=== PATIENT | female | born 1945 | race Caucasian/White ===

== ENCOUNTER 2019-08-14 00:02 | Inpatient (IN) | payer MEDICARE, BC, SELFPAY ==
[2019-08-14] VITALS (23 sets, daily range): BP systolic 146–226; BP diastolic 78–115; PULSE 73–91; RESP 11–20; TEMP 36.6–37.2; O2SAT 93–98; BMI 44.1; BMI 46.5
--- NOTE | 2019-08-14 01:23 | EKG12_ITS ---
Test Reason : HYPERTENSON Blood Pressure : / mmHG Vent. Rate : 080 BPM Atrial Rate : 080 BPM P-R Int : 156 ms QRS Dur : 082 ms QT Int : 394 ms P-R-T Axes : 055 044 059 degrees QTc Int : 454 ms Sinus rhythm with occasional Premature ventricular complexes Otherwise normal ECG Confirmed by COLE HICKMAN ([id number]), website/blog editor KIYA SMITH ([id number]) on 08/19/2019 12:13:27 PM Referred By: JAGDISH Confirmed By:COLE HICKMAN
--- NOTE | 2019-08-14 01:23 | CT_ITS ---
STUDY: CT BRAIN WITHOUT CONTRAST REASON FOR EXAM: Female, 73 years old. Headache RADIATION DOSAGE (If Supplied By Facility): CTDIvol = ( 44.99 ) mGy, DLP = ( 796.11 ) mGycm TECHNIQUE: Transaxial CT imaging of the brain was performed without administration of intravenous contrast material. Individualized dose optimization techniques were used for this CT. COMPARISON: No relevant priors. FINDINGS: Normal soft tissue structures. Normal calvarium. There is mild cerebral atrophy with widening of the extra-axial spaces and ventricular dilatation. There is mild to moderate bilateral periventricular and subcortical white matter hypoattenuation which is symmetric in distribution. Well-defined hypoattenuated lesions within the left basal ganglia. Normal thalami. Normal brainstem. Normal cerebellum. There is no intracranial hemorrhage. There are no findings of an acute ischemic infarction. Normal visualized paranasal sinuses. CT/Brain/Head without Contrast IMPRESSION: 1. No acute intracranial abnormality. 2. Mild to moderate bilateral periventricular and subcortical white matter chronic small vessel disease with age appropriate cerebral atrophy. Electronically Signed: Jose Duval MD at 4:20 EDT Tel , Service support ,
--- NOTE | 2019-08-14 01:24 | ED.DCSUM_ITS ---
History of Present Illness Chief Complaint: Hypertension Narrative: Patient is a 73-year-old female who presents with a headache. She has had uncontrolled blood pressure for about 3 weeks. She complains of a severe occipital headache for the last several days. She did contact her primary care physician today who took her off of doxazosin and added on clonidine. She took the first dose tonight. However when she checked her blood pressure at home it was 220 systolic and she was concerned she may have a stroke so presented here. No chest pain no shortness of breath no weakness lightheadedness dizziness speech difficulty. Past Medical History - Allergies and Home Meds Allergies/Adverse Reactions: Allergies acetaminophen [From Percocet] Allergy (Verified 08/14/19 00:07) Unknown Iodinated Contrast Media [DYEE] Allergy (Verified 08/14/19 00:07) Unknown oxycodone [From Percocet] Allergy (Verified 08/14/19 00:07) Unknown Penicillins [PCN] Allergy (Verified 08/14/19 00:07) Swollen lymph glands Primary Care Physician: [facility] Doctor,Out of [NON-STAFF] - Past Medical History: - - Hypertension, diabetes, hyperlipidemia Smoking Status: Never smoker Review of Systems All systems negative except as indicated General: Denies: Fever Cardiovascular: Denies: Chest pain Respiratory: Denies: Dyspnea Gastrointestinal: Denies: Vomiting Neurological: Reports: Headache Physical Exam Vital Signs/Narrative: Vital Signs Temp Pulse Resp BP Pulse Ox 08/14/19 00:03 98.2 F 91 18 159/115 H 95 Inital Vital Signs reviewed: Yes General: Well nourished, Well developed Head: Normocephalic Eyes: EOMI ENT: Moist mucous membranes Neck: Supple Cardiovascular: Regular rate, Regular rhythm Respiratory: No distress Abdomen: Soft Skin: Normal color Neurological: Alert, Oriented x3, Cranial nerves II-XII grossly intact, Normal Strength, Normal Sensation Psychological: Normal affect Diagnostic/Tx/Re-eval Impressions Brain CT 08/14/19 01:23 IMPRESSION: 1. No acute intracranial abnormality. 2. Mild to moderate bilateral periventricular and subcortical white matter chronic small vessel disease with age appropriate cerebral atrophy. Electronically Signed: Jose Duval MD at 4:20 EDT Tel , Service support , Chest X-Ray 08/14/19 03:33 IMPRESSION: No acute cardiopulmonary disease Electronically Signed: Jose Duval MD at 4:27 EDT Tel , Service support , 08/14/19 01:23 Brain/Head without Contrast [CT] Stat 08/14/19 03:33 CXR [Chest 1 View (Portable)] [RAD] Stat Laboratory Results 08/14/19 08/14/19 01:40 01:40 WBC 7.4 RBC 4.70 Hgb 14.1 Hct 41.8 MCV 88.9 MCH 30.0 MCHC 33.7 RDW Std Deviation 40.2 RDW Coeff of Cathie 12.4 Plt Count 244 MPV 10.6 Immature Gran % (Auto) 0.400 Neut % (Auto) 73.6 H Lymph % (Auto) 17.4 L [place] % (Auto) 5.6 Eos % (Auto) 2.6 Baso % (Auto) 0.4 Absolute Neuts (auto) 5.4 Absolute Lymphs (auto) 1.28 Nucleated RBC % 0 Sodium 134 L Potassium 4.8 Chloride 98 Carbon Dioxide 29.0 Anion Gap 7 BUN 15 Creatinine 0.82 Estim Creat Clear Calc 54.98 Est GFR (MDRD) Af Amer 87 Est GFR (MDRD) Non-Af 72 BUN/Creatinine Ratio 18.2 Glucose 168 H Calcium 9.1 Troponin I < 0.015 - Medical Decision Making Laboratory studies and imaging as above. EKG shows sinus rhythm with a PVC at a rate of 80, no acute ischemic changes. Patient was initially given Reglan for headache. She was given hydralazine and IV labetalol with little change in blood pressure. Her headache is symptomatically improved. While she was here she also began to mention that she has had a dyspnea on exertion. Her chest x- ray on my review showed no acute process, radiology read is pending. She remains significantly hypertensive and has been ordered additional IV labetalol. I do believe her symptoms may be related to hypertensive urgency. Therefore I did feel she should be admitted for blood pressure control further evaluation and management. Patient will be discussed with the hospitalist and admitted. ED Disposition - Plan for ED Patient: Disposition: Acute Care Hospital [facility] Diagnosis: Hypertensive urgency Referrals: [facility] Doctor,Out of [NON-STAFF] -
--- NOTE | 2019-08-14 01:26 | ED.RN ---
NO OLD EKGS IN MUSE
[2019-08-14 01:44] LABS: Absolute Lymphocyte Count 1.28 X10^3/uL (0.83-4.51); Absolute Neutrophil Count 5.4 X10^3/uL (2.0-7.7); Basophil# 0.03 X10^3/uL; Basophil% 0.4 % (0-1); Eosinophil# 0.19 X10^3/uL; Eosinophils% 2.6 % (0-5); Hematocrit 41.8 % (37-47); Hemoglobin 14.1 g/dL (12.0-15.0); Lymphocyte # 1.28 X10^3/ul (4.0); Lymphocyte % 17.4 % (19-41); Mean Corp Hgb Conc 33.7 g/dL (32-36); Mean Corpuscular Volume 88.9 fL (81-99); Mean Platelet Vol. 10.6 fl (6.2-12.0); Monocyte# 0.41 X10^3/uL; Monocyte% 5.6 % (0-10); NRBC Flagged by Analyzer 0 % (0-5); Neutrophil # 5.43 X10^3/uL (2.7-7.7); Neutrophil % 73.6 % (47-70); Platelet Count 244 K/mm3 (150-450); RBC Distribution Width CV 12.4 % (11.6-14.6); RBC Distribution Width SD 40.2 fl (35.1-43.9); White Blood Count 7.4 K/mm3 (4.4-11.0)
[2019-08-14] MEDS: Metoclopramide 10 MG/2 ML Vial IV (01:50)
[2019-08-14 02:01] LABS: Anion Gap 7 (5-15); BUN 15 mg/dL (7-18); BUN/Creat Ratio 18.2 RATIO (10-20); Calcium,Total 9.1 mg/dL (8.5-10.1); Chloride 98 mmol/L (98-107); Creatinine, Serum 0.82 mg/dL (0.55-1.02); EST Glomerular Filtration Rate 72 mL/min (>60); Est Glom Filt Rate - Afr Amer 87 mL/min (>60); Estimated Creatinine Clearance 54.98 ml/min; Glucose 168 mg/dL (74-106); Potassium 4.8 mmol/L (3.5-5.1); Sodium Level 134 mmol/L (136-145)
[2019-08-14] MEDS: hydrALAZINE 20 MG/ML Vial 10 MG IV ×3 (02:33→23:07)
--- NOTE | 2019-08-14 03:32 | ED.RN ---
CALLED CT FOR RESULTS, SHE WILL CALL RADIOLOGIST.
--- NOTE | 2019-08-14 03:33 | RAD_ITS ---
STUDY: X-RAY CHEST REASON FOR EXAM: Female, 73 years old. Shortness of breath TECHNIQUE: Single AP portable view of the chest. COMPARISON: None. FINDINGS: The lungs are clear and expanded. There is no demonstrated pleural abnormality. Borderline cardiomegaly. Normal mediastinum and mirza. Normal visualized pulmonary arteries. There is atherosclerotic calcification of the aortic arch . Normal visualized thoracic spine. Normal visualized ribs, clavicles, and shoulders. There is no demonstrated abnormality of the visualized soft tissue structures of the upper abdomen. RAD/Chest 1 View (Portable) IMPRESSION: No acute cardiopulmonary disease Electronically Signed: Jose Duval MD at 4:27 EDT Tel , Service support ,
--- NOTE | 2019-08-14 04:14 | ED.RN ---
Called radiology again for CT results as it has been over 2 hrs. weatherseal technician has called ultrasound technol support. Tech support has tried to email radiologist with no response. weatherseal technician wants tech support to reassign CT for results.
--- NOTE | 2019-08-14 04:33 | PCM.HP.STD ---
Problem List (1) Hypertensive urgency Status: Acute History of Present Illness Date of Admission: 08/14/19 Chief Complaint: High Blood Pressure The patient is a 73 year old F with a significant history of HTN and diabetes who presented to the ED because of elevated blood pressure. Her blood pressure has being uncontrolled and her PCP began to make some alterations to her blood pressure regimen around the first week of July. On the day of presentation systolic blood pressure was around 220. Patient called her PCP and was prescribed clonidine; and was instructed that if her blood pressure remain uncontrolled she should come to the emergency department. Her cadura was recently stopped. Also patients has had a severe headache for the last 3-4 weeks. At the ED she complained of SOB while lying in the ED Bed At the ED patient had severely elevated blood pressure and she was given a total of 60 mg IV labetalol and 10 mg IV Apresoline. Also she was given Reglan IV for headache. Past Medical History Medical History: Medical History (Last Updated 08/14/19 @ 06:40 by Skip Hickman MD) HTN (hypertension) I10 Allergies acetaminophen [From Percocet] Allergy (Verified 08/14/19 00:07) Unknown Iodinated Contrast Media [DYEE] Allergy (Verified 08/14/19 00:07) Unknown oxycodone [From Percocet] Allergy (Verified 08/14/19 00:07) Unknown Penicillins [PCN] Allergy (Verified 08/14/19 00:07) Swollen lymph glands Home Medications: Ambulatory Orders Medication Instructions Recorded Amlodipine [Norvasc] 10 mg PO DAILY 08/14/19 Clonidine HCl [Catapres] 0.1 mg PO BID 08/14/19 Labetalol [Trandate] 400 mg PO BID 08/14/19 Mirabegron [Myrbetriq] 50 mg PO DAILY 08/14/19 Omeprazole [Prilosec] 20 mg PO DAILY 08/14/19 Potassium Chloride 20 meq PO BID 08/14/19 Pravastatin [Pravachol] 20 mg PO QHS 08/14/19 Sitagliptin Phosphate [Januvia] 100 mg PO DAILY 08/14/19 glipiZIDE [Glucotrol] 10 mg PO BIDAC 08/14/19 Surgical History: cholecystectomy, total knee arthroplasty - Bilateral, - - Rotator cuff surgery; femur surgery Lives: Spouse/ Significant Other Smoking Status: Never smoker Alcohol: None - *Family History Maternal History Items: Diabetes, Hypertension, - - Her mother from cerebral hemorrhage Paternal History Items: Diabetes, Heart Disease, - - Her father from cerebral hemorrhage Review of Systems Constitutional: Denies: Chills, Fever, Weight Change HEENT: Reports: Head Aches. Denies: Sinus Congestion, Sinus Drainage Cardiovascular: Denies: Chest Pain, Palpitations Respiratory: Reports: Shortness of breath at rest. Denies: Cough, Sputum production Gastrointestinal: Denies: Abdominal Pain, Nausea, Vomiting Genitourinary: Denies: Dysuria Musculoskeletal: Denies: Joint Pain, Joint Tenderness Skin: Denies: Rash, Wounds Neurological: Denies: Numbness, Tingling, Focal weakness Psychiatric: Denies: Anxiety, Depression, Homicidal Ideations, Suicidal Ideations Hematologic/ Lymphatic: Denies: Easy Bruising, Easy Bleeding VTE Information - Inpt Only VTE Present on Admission: No VTE Mechan Device Prophylaxis: None VTE Pharm Prophylaxis ordered?: Yes Patient Problems: Active and Suspected Problems (Last Updated 08/14/19 @ 06:40 by Skip Hickman MD) Hypertensive urgency (Acute) - Physical Exam General: Alert, Oriented x3, Cooperative HEENT: Atraumatic, PERRLA, EOMI, Normocephalic Neck: Supple, No JVD, Negative Carotid Bruits Lungs: Clear to auscultation, Normal air movement Cardiovascular: Regular rate, No murmurs Abdomen: Bowel Sounds Present, Soft, Non Tender Extremities: No edema, Capillary Refill Less than 3 Seconds Skin: No rashes, No breakdown Musculoskeletal: No Tenderness to Palpation of Joints or Extremities Neurological: Cranial nerves II-XII grossly intact Psych/Mental Status: Normal Affect, Appropriate Vital Signs Temp Pulse Resp BP Pulse Ox 98.0 F 74 11 L 189/100 H 94 08/14/19 04:28 08/14/19 04:32 08/14/19 04:32 08/14/19 04:32 08/14/19 04:32 Oxygen Delivery Method Room Air Weight: 120.202 kg Body Mass Index (BMI) 44.1 Laboratory Tests Past 24 Hrs 08/14/19 08/14/19 01:40 01:40 WBC 7.4 RBC 4.70 Hgb 14.1 Hct 41.8 MCV 88.9 MCH 30.0 MCHC 33.7 RDW Std Deviation 40.2 RDW Coeff of Cathie 12.4 Plt Count 244 MPV 10.6 Immature Gran % (Auto) 0.400 Neut % (Auto) 73.6 H Lymph % (Auto) 17.4 L [place] % (Auto) 5.6 Eos % (Auto) 2.6 Baso % (Auto) 0.4 Absolute Neuts (auto) 5.4 Absolute Lymphs (auto) 1.28 Nucleated RBC % 0 Sodium 134 L Potassium 4.8 Chloride 98 Carbon Dioxide 29.0 Anion Gap 7 BUN 15 Creatinine 0.82 Estim Creat Clear Calc 54.98 Est GFR (MDRD) Af Amer 87 Est GFR (MDRD) Non-Af 72 BUN/Creatinine Ratio 18.2 Glucose 168 H Calcium 9.1 Troponin I < 0.015 Assessment/Plan All Active Problems (Last Updated 08/14/19 @ 06:40 by Skip Hickman MD) Hypertensive urgency (Acute) The patient is a 73 year old F with a significant history of HTN and diabetes who presented to the ED because of elevated blood pressure and headache and required high dose IV blood pressure medication at the emergency department consistent with hypertensive urgency. Hypertensive urgency Restart home blood pressure medication of amlodipine and labetalol. Hold clonidine since it can cause rebound hypertension. Goal is gradual reduction of blood pressure. Patient is on home potassium chloride 20 mEq p.o. twice daily that she takes for hypokalemia. Because of a history of hypokalemia and HTN we will get renin aldosterone ratio. Will add schedule Hydralazine po and prn Hydralazine IV Unsure while patient is not on any diuretic as a third bp meds. Assume because of history of hypokalemia. Order to obtain records from her PCP''s office, Dr. Boy Townsend, [place], [place]. Headache Probably related to HTN Received reglan at ED. Allergic to tylenol. Toradol prn. BP treatment as above Diabetes On presentation her blood sugar was within goal. Januvia and Glucotrol continued. FSBS ordered. Hypokalemia Patient takes potassium 20 mEq twice daily home. On presentation her potassium was 4.8. De-escalate to potassium chloride 20 mEq once daily. Trend BMP GERD Prilosec continued Overactive bladder Mirabegron continued DVT Prophylaxis Subcutaneous Lovenox Code Visit OBSV E&M: 41210 Initial observation care L3
[2019-08-14] MEDS: Labetalol 100 MG/20 ML Vial 40 MG IV (04:46)
[2019-08-14] MEDS: Labetalol 200 MG Tablet 400 MG PO ×2 (06:29→20:46)
[2019-08-14] MEDS: Ketorolac 10 MG Tablet PO (06:30)
[2019-08-14] MEDS: hydrALAZINE 50 MG Tablet PO ×3 (06:30→20:47)
[2019-08-14 07:10] LABS: Bedside Glucose 174 mg/dL (70-110)
[2019-08-14] MEDS: glipiZIDE 10 MG Tablet PO ×2 (08:41→17:15)
[2019-08-14] MEDS: LINAGLIPTIN 5 MG TABLET PO (08:41)
[2019-08-14] MEDS: Pantoprazole Sodium 20 MG Tablet PO (08:41)
[2019-08-14] MEDS: cloNIDine HCl 0.1 MG Tablet PO (08:41)
[2019-08-14] MEDS: amLODIPine 10 MG Tablet PO (08:42)
[2019-08-14] MEDS: Enoxaparin 40 MG/0.4 ML Syringe SC (08:42)
[2019-08-14] MEDS: Mirabegron 50 MG TAB.ER.24H PO (08:44)
--- NOTE | 2019-08-14 08:53 | ECHOD_ITS ---
Reason For Study: HTN Procedure This was a 2D Doppler, Color Flow transthoracic echocardiogram. Exam performed portable in patient room. Left Ventricle Mild concentric left ventricular hypertrophy. The estimated ejection fraction is 75 %. Stage 1 diastolic dysfunction. No regional wall motion abnormalities noted. Right Ventricle Mildly dilated right ventricle. Normal systolic function. Atria Normal left atrium. Normal right atrium. Normal atrial septum. Mitral Valve Mild diffuse mitral valve thickening. Mild mitral annular calcification extending into the posterior leaflet. Tricuspid Valve Normal tricuspid valve. Trivial tricuspid valve insufficiency. Right ventricular systolic pressure estimated to be 23 mmHg. Aortic Valve Trisinus/trileaflet aortic valve. Mild focal aortic valve thickening. There is no aortic stenosis. Pulmonic Valve The pulmonic valve is not well visualized. Great Vessels Normal aortic root. Normal arch. Normal inferior vena cava. Inferior vena cava collapse with sniff. Pericardium/Pleural No pericardial effusion. MMode/2D Measurements & Calculations LVIDd: 4.3 cm IVSd: 1.1 cm LVOT diam: 2.0 cm LVIDs: 3.0 cm LVPWd: 1.3 cm LVOT area: 3.1 cm2 RVDd: 4.2 cm FS: 32.0 % Ao root diam: 3.5 cm LAV(MOD-bp): 42.1 ml LA A4 area: 16.1 cm2 LAV(MOD-bp) Indexed: 18.9 ml/m2 LAV(MOD-sp2): 38.9 ml LAV(MOD-sp4): 43.4 ml LA dimension(2D): 4.9 cm RA A4 area: 14.1 cm2 Time Measurements MV dec time: 0.39 sec Doppler Measurements & Calculations MV E max shaheed: 73.0 cm/sec Lat Peak E' Shaheed: 3.7 cm/sec Med Peak E' Shaheed: 5.4 cm/sec MV A max shaheed: 104.9 cm/sec E/E' lat: 19.5 E/E' med: 13.6 MV E/A: 0.70 Ao V2 max: 183.3 cm/sec LV V1 max: 140.8 cm/sec SV(LVOT): 101.5 ml Ao max P.4 mmHg LV V1 max P.9 mmHg Ao V2 mean: 127.7 cm/sec LV V1 mean P.6 mmHg Ao mean P.2 mmHg LV V1 mean: 101.9 cm/sec Ao V2 VTI: 37.4 cm LV V1 VTI: 33.1 cm JOSEPH(I,D): 2.7 cm2 JOSEPH(V,D): 2.4 cm2 PA V2 max: 123.1 cm/sec TR max shaheed: 209.7 cm/sec TR max P.6 mmHg Interpretation Summary Mild concentric left ventricular hypertrophy. The estimated ejection fraction is 75 %. Stage 1 diastolic dysfunction. Mildly dilated right ventricle. Trivial tricuspid valve insufficiency. Right ventricular systolic pressure estimated to be 23 mmHg. There is no comparison study available. Ordering Physician: Negar Dixon Referring Physician: MAITE TURNER Performed By: America Jett, LACY, RVT
[2019-08-14 11:50] LABS: Bedside Glucose 185 mg/dL (70-110)
[2019-08-14] MEDS: Acetaminophen 325 MG Tablet 650 MG PO ×2 (14:11→20:51)
--- NOTE | 2019-08-14 14:57 | PCM.PROGNOTE ---
<Negar Dixon - Last Filed: 08/14/19 15:09> Patient Problems: Active and Suspected Problems (Last Updated 08/14/19 @ 06:40 by Skip Hickman MD) Hypertensive urgency (Acute) Subjective: Patient seen and examined. Headache improved. Denies chest pain, shortness of breath. - Physical Exam General: Alert, Oriented x3, Cooperative HEENT: Atraumatic, PERRLA, EOMI, Normocephalic Neck: Supple, No JVD, Negative Carotid Bruits Lungs: Clear to auscultation, Normal air movement Cardiovascular: Regular rate, Regular Rhythm, Normal S1, Normal S2, No murmurs Abdomen: Bowel Sounds Present, Soft, Non Tender, Non-Distended, Obese Extremities: No clubbing, No cyanosis, No edema, Capillary Refill Less than 3 Seconds Skin: No rashes, No breakdown Musculoskeletal: No Tenderness to Palpation of Joints or Extremities Neurological: Cranial nerves II-XII grossly intact, Neuro grossly intact Psych/Mental Status: Normal Affect, Appropriate Vital Signs Temp Pulse Resp BP Pulse Ox 98.5 F 74 16 169/82 H 94 08/14/19 14:00 08/14/19 14:12 08/14/19 14:00 08/14/19 14:12 08/14/19 14:00 Oxygen Delivery Method Room Air Weight: 271 lb 2.697 oz Body Mass Index (BMI) 46.5 Intake and Output for Last 24 Hours 08/12/19 08/13/19 08/14/19 23:59 23:59 23:59 Intake Total 430 / 430 Balance 430 / 430 Laboratory Tests Past 24 Hrs 08/14/19 08/14/19 08/14/19 01:40 01:40 06:20 WBC 7.4 RBC 4.70 Hgb 14.1 Hct 41.8 MCV 88.9 MCH 30.0 MCHC 33.7 RDW Std Deviation 40.2 RDW Coeff of [place] 12.4 Plt Count 244 MPV 10.6 Immature Gran % (Auto) 0.400 Neut % (Auto) 73.6 H Lymph % (Auto) 17.4 L [place] % (Auto) 5.6 Eos % (Auto) 2.6 Baso % (Auto) 0.4 Absolute Neuts (auto) 5.4 Absolute Lymphs (auto) 1.28 Nucleated RBC % 0 Sodium 134 L Potassium 4.8 Chloride 98 Carbon Dioxide 29.0 Anion Gap 7 BUN 15 Creatinine 0.82 Estim Creat Clear Calc 54.98 Est GFR (MDRD) Af Amer 87 Est GFR (MDRD) Non-Af 72 BUN/Creatinine Ratio 18.2 Glucose 168 H Calcium 9.1 Troponin I < 0.015 Renin Pending Aldosterone Pending POC Glucose 08/14/19 08/14/19 11:45 06:45 POC Glucose 185 H 174 H Medical Necessity - Tobacco Use Smoking Status: Never smoker Tobacco Use: Non-smoker Assessment/Plan All Active Problems (Last Updated 08/14/19 @ 06:40 by Skip Hickman MD) Hypertensive urgency (Acute) 1. Hypertensive urgency-blood pressure improving. Continue amlodipine, labetalol regimen. Decrease clonidine to .5 mg twice daily. Hydralazine 50 mg 3 times daily added. Echocardiogram demonstrates an EF of 75%, stage I diastolic dysfunction. 2. Hyperlipidemia-continue statin. 3. Type 2 diabetes mellitus-continue Accu-Cheks AC at bedtime with sliding scale insulin. 4. Overactive bladder-continue mirabegron regimen. 5. GERD-continue omeprazole regimen. DVT prophylaxis-Lovenox This patient was seen by TEDDY Kessler under the supervision of Dr Brian. <Charisse Brian - Last Filed: 08/14/19 16:55> - Physical Exam Vital Signs Temp Pulse Resp BP Pulse Ox 98.5 F 76 16 169/82 H 94 08/14/19 14:00 08/14/19 15:41 08/14/19 14:00 08/14/19 14:12 08/14/19 14:00 Oxygen Delivery Method Room Air Weight: 123 kg Body Mass Index (BMI) 46.5 Intake and Output for Last 24 Hours 08/12/19 08/13/19 08/14/19 23:59 23:59 23:59 Intake Total 430 / 430 Balance 430 / 430 Laboratory Tests Past 24 Hrs 08/14/19 08/14/19 08/14/19 01:40 01:40 06:20 WBC 7.4 RBC 4.70 Hgb 14.1 Hct 41.8 MCV 88.9 MCH 30.0 MCHC 33.7 RDW Std Deviation 40.2 RDW Coeff of Cathie 12.4 Plt Count 244 MPV 10.6 Immature Gran % (Auto) 0.400 Neut % (Auto) 73.6 H Lymph % (Auto) 17.4 L [place] % (Auto) 5.6 Eos % (Auto) 2.6 Baso % (Auto) 0.4 Absolute Neuts (auto) 5.4 Absolute Lymphs (auto) 1.28 Nucleated RBC % 0 Sodium 134 L Potassium 4.8 Chloride 98 Carbon Dioxide 29.0 Anion Gap 7 BUN 15 Creatinine 0.82 Estim Creat Clear Calc 54.98 Est GFR (MDRD) Af Amer 87 Est GFR (MDRD) Non-Af 72 BUN/Creatinine Ratio 18.2 Glucose 168 H Calcium 9.1 Troponin I < 0.015 Renin Pending Aldosterone Pending POC Glucose 08/14/19 08/14/19 11:45 06:45 POC Glucose 185 H 174 H Assessment/Plan This patient was seen in conjunction with Negar Dixon NP. I have independently interviewed and examined the patient and reviewed pertinent historical, laboratory, and other data. Please refer to her note for patient's presentation, findings, and recommendations. Patient was seen and examined. She feels improved. Denies any chest pain or dizziness. No acute events overnight. Vitals were reviewed -blood pressure remains uncontrolled Physical Exam: Gen: Obese, not pale, not jaundiced, alert oriented x3 CVS:HS I +II, regular, no murmurs RESP: Clinically clear to auscultation GI: BS present and normal, nontender, no palpable organs EXT:No edema Labs reviewed: ASSESSMENT: 1. Hypertensive urgency 2. Hyperlipidemia 3. Type II DM 4. GERD Meds reviewed Plan: Continue on amlodipine, hydralazine, labetalol discontinue clonidine Continue to monitor BP Will re-evaluate in am Code Visit Inpatient E&M: 85253 Subs Hosp L2
[2019-08-14] MEDS: Pravastatin 20 MG Tablet PO (20:47)
[2019-08-14 23:00] LABS: Bedside Glucose 140 mg/dL (70-110)
[2019-08-14] MEDS: 0.9% NaCl Peripheral Flush Adult/Peds IV (23:08)
[2019-08-15] VITALS (19 sets, daily range): BP systolic 136–186; BP diastolic 52–89; PULSE 72–107; RESP 16–18; TEMP 36.5–37.4; O2SAT 93–96
[2019-08-15] MEDS: hydrALAZINE 20 MG/ML Vial 10 MG IV ×2 (02:59→06:51)
[2019-08-15] MEDS: 0.9% NaCl Peripheral Flush Adult/Peds IV ×2 (03:00→06:51)
[2019-08-15] MEDS: hydrALAZINE 50 MG Tablet PO (06:22)
[2019-08-15] MEDS: Acetaminophen 325 MG Tablet 650 MG PO ×3 (06:22→19:53)
[2019-08-15 06:51] LABS: Bedside Glucose 138 mg/dL (70-110)
[2019-08-15 06:52] LABS: Anion Gap 5 (5-15); BUN 15 mg/dL (7-18); BUN/Creat Ratio 18.7 RATIO (10-20); Calcium,Total 8.9 mg/dL (8.5-10.1); Chloride 96 mmol/L (98-107); EST Glomerular Filtration Rate 74 mL/min (>60); Est Glom Filt Rate - Afr Amer 90 mL/min (>60); Estimated Creatinine Clearance 54.08 ml/min; Glucose 150 mg/dL (74-106); Potassium 3.6 mmol/L (3.5-5.1); Sodium Level 128 mmol/L (136-145)
--- NOTE | 2019-08-15 07:45 | RDU_ITS ---
Reason For Study: Uncontrolled hypertension, multiple meds Right Renal Artery Left Renal Artery Right renal artery ostium 107/26.6 Lt renal artery not visualized due RSV/EDV. to bowel gas. Right renal artery proximal Left Renal Parenchyma 132.6/31.8 PSV/EDV. Left upper pole medulla 29.1/7.1 Right renal artery mid 111.1/27.2 PSV/EDV . PSV/EDV. Left upper pole medulla EDR 0.24 . Right renal artery distal Left upper pole medulla R.I. 0.76 . 100.2/23.6 PSV/EDV. UP Cortex 21.4/8.2 PSV/EDV. Right Renal Parenchyma Left upper pole cortex EDR 0.38 . Upper Pole Medula 32.5/8.5 PSV/EDV. Left upper pole cortex R.I. 0.58 . Right upper pole medulla EDR 0.26 . Left lower Pole medulla 34/9.8 Right upper pole medulla R.I. PSV/EDV . 0.74 . Left lower pole medulla EDR 0.29 . Upper [place] Cortx 19.6/6.1 PSV/EDV. Left lower pole medulla R.I. 0.71 . Right upper pole cortex EDR 0.31 . Lower Pole Cortx 19.7/7.1 PSV/EDV. Right upper pole cortex R.I. 0.69 . Left lower pole cortex EDR 0.36 . Right lower Pole medulla 28.8/7.9 Left lower pole cortex R.I. 0.64 . PSV/EDV . Left Renal Hilar Right lower pole medulla EDR 0.27 . LT Hilar avg 39.5/10.4 PSV/EDV . Right lower pole medulla R.I. Left hilar acceleration time 30 0.72 . m/sec. Lower Pole Cortex 23.9/7.9 PSV/EDV. Left Renal Dimensions Right lower pole cortex EDR 0.33 . Left kidney size 9.19 cm . Right lower pole cortex R.I. 0.67 . Left cortical dimension 1.39 cm . Right Renal Hilar Right Hilar avg 66.6/20 PSV/EDV. Right hilar acceleration time 40 m/sec. Right Renal Dimensions Right kidney size 10.38 cm . Right cortical dimension 1.90 cm . Aorta Proximal abdominal aorta 1.37 x 1.65 cm . Proximal abdominal aorta peak systolic velocity is 100.7 cm/sec . Procedures Test was technically difficult and limited due to pt body habitus and bowel gas. Interpretation Summary 0-59% stenosis right renal artery Preserved right renal length 10.38cm Left renal artery obscured by bowel gas Left renal length 9.19cm Unable to determine degree of left renal artery stenosis--could consider CTA pending renal function Ordering Physician: Charisse Brian Referring Physician: Boy Barriga Performed By: Hodan Tsai RVT
[2019-08-15] MEDS: glipiZIDE 10 MG Tablet PO ×2 (09:05→16:17)
[2019-08-15] MEDS: Enoxaparin 40 MG/0.4 ML Syringe SC (09:05)
[2019-08-15] MEDS: amLODIPine 10 MG Tablet PO (09:06)
[2019-08-15] MEDS: Labetalol 200 MG Tablet 400 MG PO ×2 (09:06→21:55)
[2019-08-15] MEDS: Pantoprazole Sodium 20 MG Tablet PO (09:06)
[2019-08-15] MEDS: LINAGLIPTIN 5 MG TABLET PO (09:06)
[2019-08-15] MEDS: Mirabegron 50 MG TAB.ER.24H PO (09:06)
[2019-08-15] MEDS: Ketorolac 10 MG Tablet PO (09:26)
--- NOTE | 2019-08-15 10:42 | CON.PCM_ITS ---
Problem List (1) Hypertensive urgency Status: Acute Consultation - Renal 08/15/19 PCP/ Referring MD: Requesting physician: [] Primary care physician: Boy Barriga MD Reason for Consultation:: HTN hyponatremia - History of Present Illness History of Present Illness: The patient is a 73 year old F admitted with uncontrolled HTN. history of HTN for many years which was generally well controlled. BP was ok until last month. started going higher in july weight loss 12 lbs no other constitutional symptoms - Allergies Allergies: Allergies Iodinated Contrast Media [DYEE] Allergy (Verified 08/14/19 00:07) Unknown oxycodone [From Percocet] Allergy (Verified 08/14/19 00:07) Unknown Penicillins [PCN] Allergy (Verified 08/14/19 00:07) Swollen lymph glands - Current Medications Current Medications: Current Medications Acetaminophen (Tylenol) 650 mg PO Q6H PRN PRN PRN Reason: Pain Score 1-10/10 Last Admin: 08/15/19 06:22 Dose: 650 mg Documented by: Amlodipine Besylate (Norvasc) 10 mg PO DAILY [facility] Last Admin: 08/15/19 09:06 Dose: 10 mg Documented by: Dextrose (D50w Syringe) 0 gm IV X1 PRN; Protocol PRN Reason: Hypoglycemia Enoxaparin Sodium (Lovenox) 40 mg SC DAILY@1000 VERONIQUE Last Admin: 08/15/19 09:05 Dose: 40 mg Documented by: Glipizide (Glucotrol) 10 mg PO BIDAC [facility] Last Admin: 08/15/19 09:05 Dose: 10 mg Documented by: Glucagon () 1 mg IM .X1 PRN PRN Reason: Hypoglycemia Hydralazine HCl (Apresoline Iv) 10 mg IV Q4H PRN PRN PRN Reason: SBP > 160 Last Admin: 08/15/19 06:51 Dose: 10 mg Documented by: Hydralazine HCl (Apresoline) 75 mg PO TID [facility] Sodium Chloride () 250 mls @ 15 mls/hr IV .[id number] PRN PRN Reason: SALINE FLUSH Ketorolac Tromethamine (Toradol) 10 mg PO Q8H PRN PRN PRN Reason: HEADACHE Stop: 08/19/19 05:55 Last Admin: 08/15/19 09:26 Dose: 10 mg Documented by: Labetalol HCl (Trandate) 400 mg PO BID [facility] Last Admin: 08/15/19 09:06 Dose: 400 mg Documented by: Linagliptin (Tradjenta) 5 mg PO DAILY [facility] Last Admin: 08/15/19 09:06 Dose: 5 mg Documented by: Magnesium Hydroxide (Milk Of Magnesia) 30 ml PO DAILY PRN PRN PRN Reason: Constipation Mirabegron (Myrbetriq) 50 mg PO DAILY [facility] Last Admin: 08/15/19 09:06 Dose: 50 mg Documented by: Pantoprazole Sodium (Protonix) 20 mg PO DAILY [facility] Last Admin: 08/15/19 09:06 Dose: 20 mg Documented by: Potassium Chloride (K-Dur) 20 meq PO DAILY [facility] Last Admin: 08/15/19 09:11 Dose: 20 meq Documented by: Pravastatin Sodium (Pravachol) 20 mg PO QHS [facility] Last Admin: 08/14/19 20:47 Dose: 20 mg Documented by: Sodium Chloride () 5 - 15 ml IV UD PRN PRN Reason: SALINE FLUSH Last Admin: 08/15/19 06:51 Dose: 10 ml Documented by: - Past Surgical History Surgical History: cholecystectomy, total knee arthroplasty - Bilateral, - - Rotator cuff surgery; femur surgery - Social History Smoking Status: Never smoker Alcohol: None - Family History Maternal History Items: Diabetes, Hypertension, - - Her mother from cerebral hemorrhage Paternal History Items: Diabetes, Heart Disease, - - Her father from cerebral hemorrhage Review of Systems Constitutional: Denies: Chills, Fever, Weight Change HEENT: Denies: Head Aches, Sinus Congestion, Sinus Drainage Cardiovascular: Denies: Chest Pain, Palpitations Respiratory: Denies: Cough, Shortness of breath at rest, Sputum production Gastrointestinal: Denies: Abdominal Pain, Nausea, Vomiting Genitourinary: Denies: Dysuria Musculoskeletal: Denies: Joint Pain, Joint Tenderness Skin: Denies: Rash, Wounds Neurological: Denies: Numbness, Tingling, Focal weakness Psychiatric: Denies: Anxiety, Depression, Homicidal Ideations, Suicidal Ideations Hematologic/ Lymphatic: Denies: Easy Bruising, Easy Bleeding Patient Problems: Active and Suspected Problems (Last Updated 08/14/19 @ 06:40 by Skip Hickman MD) Hypertensive urgency (Acute) - Physical Exam General: Alert, Oriented x3, Cooperative HEENT: Atraumatic, PERRLA, EOMI, Normocephalic Neck: Supple, No JVD, Negative Carotid Bruits Lungs: Clear to auscultation, Normal air movement Cardiovascular: Regular rate, No murmurs Abdomen: Bowel Sounds Present, Soft, Non Tender Extremities: No edema, Capillary Refill Less than 3 Seconds Skin: No rashes, No breakdown Musculoskeletal: No Tenderness to Palpation of Joints or Extremities Neurological: Cranial nerves II-XII grossly intact Psych/Mental Status: Normal Affect, Appropriate Vital Signs Temp Pulse Resp BP Pulse Ox 98.7 F 94 18 167/89 H 96 08/15/19 08:53 08/15/19 08:53 08/15/19 08:53 08/15/19 08:53 08/15/19 08:53 Oxygen Delivery Method Room Air Weight: 123 kg Body Mass Index (BMI) 46.5 Intake and Output for Last 24 Hours 08/13/19 08/14/19 08/15/19 23:59 23:59 23:59 Intake Total 940 / 940 Balance 940 / 940 Laboratory Tests Past 24 Hrs 08/15/19 05:50 Sodium 128 L Potassium 3.6 Chloride 96 L Carbon Dioxide 27.0 Anion Gap 5 BUN 15 Creatinine 0.80 Estim Creat Clear Calc 54.08 Est GFR (MDRD) Af Amer 90 Est GFR (MDRD) Non-Af 74 BUN/Creatinine Ratio 18.7 Glucose 150 H Calcium 8.9 POC Glucose 08/15/19 08/14/19 08/14/19 06:24 22:56 11:45 POC Glucose 138 H 140 H 185 H Assessment/Plan All Active Problems (Last Updated 08/14/19 @ 06:40 by Skip Hickman MD) Hypertensive urgency (Acute) HTN. creatinine is ok. reviewed prior records from [facility]. prior meds are amlodipine, labetalol Doxazosin was increased last month to 8 mg Chronic hypokalemia on oral KCL renin and debbie levels pending renal dopplers ordered add lisinopril 40 mg daily Hyponatremia. new onset today. monitor for now
--- NOTE | 2019-08-15 11:10 | PCM.PN.HOSP ---
Patient Problems: Active and Suspected Problems (Last Updated 08/14/19 @ 06:40 by Skip Hickman MD) Hypertensive urgency (Acute) Subjective: Patient seen and examined. She complains of a headache and feels about the same. Denies any dizziness or chest pain. Complains of generalized weakness Objective: Physical Exam General: Alert, Oriented x3, Cooperative HEENT: Atraumatic, PERRLA, EOMI, Normocephalic Neck: Supple, No JVD, Negative Carotid Bruits Lungs: Clear to auscultation, Normal air movement Cardiovascular: Regular rate, Regular Rhythm, Normal S1, Normal S2, No murmurs Abdomen: Bowel Sounds Present, Soft, Non Tender, Non-Distended, Obese Extremities: No clubbing, No cyanosis, No edema, Capillary Refill Less than 3 Seconds Skin: No rashes, No breakdown Musculoskeletal: No Tenderness to Palpation of Joints or Extremities Neurological: Cranial nerves II-XII grossly intact, Neuro grossly intact Psych/Mental Status: Normal Affect, Appropriate Vitals/I&O's: Vital Signs Temp Pulse Resp BP Pulse Ox 98.7 F 94 18 167/89 H 96 08/15/19 08:53 08/15/19 08:53 08/15/19 08:53 08/15/19 08:53 08/15/19 08:53 Oxygen Delivery Method Room Air Weight: 123 kg Body Mass Index (BMI) 46.5 Intake and Output for Last 24 Hours 08/13/19 08/14/19 08/15/19 23:59 23:59 23:59 Intake Total 940 / 940 Balance 940 / 940 Laboratory Results 08/14/19 11:45: POC Glucose 185 H 08/14/19 22:56: POC Glucose 140 H 08/15/19 05:50: Sodium 128 L, Potassium 3.6, Chloride 96 L, Carbon Dioxide 27.0, Anion Gap 5, BUN 15, Creatinine 0.80, Estim Creat Clear Calc 54.08, Est GFR (MDRD) Af Amer 90, Est GFR (MDRD) Non-Af 74, BUN/Creatinine Ratio 18.7, Glucose 150 H, Calcium 8.9 08/15/19 06:24: POC Glucose 138 H Current Medications Acetaminophen (Tylenol) 650 mg PO Q6H PRN PRN PRN Reason: Pain Score 1-10 Last Admin: 08/15/19 06:22 Dose: 650 mg Documented by: Amlodipine Besylate (Norvasc) 10 mg PO DAILY [facility] Last Admin: 08/15/19 09:06 Dose: 10 mg Documented by: Dextrose (D50w Syringe) 0 gm IV X1 PRN; Protocol PRN Reason: Hypoglycemia Enoxaparin Sodium (Lovenox) 40 mg SC DAILY@1000 VERONIQUE Last Admin: 08/15/19 09:05 Dose: 40 mg Documented by: Glipizide (Glucotrol) 10 mg PO BIDAC [facility] Last Admin: 08/15/19 09:05 Dose: 10 mg Documented by: Glucagon () 1 mg IM .X1 PRN PRN Reason: Hypoglycemia Hydralazine HCl (Apresoline Iv) 10 mg IV Q4H PRN PRN PRN Reason: SBP > 160 Last Admin: 08/15/19 06:51 Dose: 10 mg Documented by: Hydralazine HCl (Apresoline) 75 mg PO TID [facility] Sodium Chloride () 250 mls @ 15 mls/hr IV .[id number] PRN PRN Reason: SALINE FLUSH Ketorolac Tromethamine (Toradol) 10 mg PO Q8H PRN PRN PRN Reason: HEADACHE Stop: 08/19/19 05:55 Last Admin: 08/15/19 09:26 Dose: 10 mg Documented by: Labetalol HCl (Trandate) 400 mg PO BID [facility] Last Admin: 08/15/19 09:06 Dose: 400 mg Documented by: Linagliptin (Tradjenta) 5 mg PO DAILY [facility] Last Admin: 08/15/19 09:06 Dose: 5 mg Documented by: Lisinopril (Zestril) 40 mg PO DAILY [facility] Magnesium Hydroxide (Milk Of Magnesia) 30 ml PO DAILY PRN PRN PRN Reason: Constipation Mirabegron (Myrbetriq) 50 mg PO DAILY [facility] Last Admin: 08/15/19 09:06 Dose: 50 mg Documented by: Pantoprazole Sodium (Protonix) 20 mg PO DAILY [facility] Last Admin: 08/15/19 09:06 Dose: 20 mg Documented by: Potassium Chloride (K-Dur) 20 meq PO DAILY [facility] Last Admin: 08/15/19 09:11 Dose: 20 meq Documented by: Pravastatin Sodium (Pravachol) 20 mg PO QHS [facility] Last Admin: 08/14/19 20:47 Dose: 20 mg Documented by: Sodium Chloride () 5 - 15 ml IV UD PRN PRN Reason: SALINE FLUSH Last Admin: 08/15/19 06:51 Dose: 10 ml Documented by: Medical Necessity - Tobacco Use Smoking Status: Never smoker Tobacco Use: Non-smoker Assessment/Plan All Active Problems (Last Updated 08/14/19 @ 06:40 by Skip Hickman MD) Hypertensive urgency (Acute) 1. Hypertensive urgency, blood pressure is slowly improving Renal Doppler ultrasound ordered, results pending Continue amlodipine, hydralazine, labetalol. Lisinopril added today by nephrology Continue to monitor 2. Hyponatremia, drop in sodium from 134 to 128, nephrology consulted Monitoring recommended 3. Hyperlipidemia, on statin. 4.Type 2 diabetes mellitus, blood sugars are fairly controlled Continue blood glucose checks with insulin sliding scale 5. Overactive bladder, on mirabegron 6. GERD on PPI 7. DVT prophylaxis-Lovenox Code Visit Inpatient E&M: 27281 Subs Hosp L2
[2019-08-15 11:55] LABS: Bedside Glucose 203 mg/dL (70-110)
--- NOTE | 2019-08-15 12:30 | CASEMGMT ---
Addendum entered by Natalie Pearl 08/15/19 12:53: Reviewed DONAHUE form with pt. Denies having any questions. DONAHUE form signed by pt, copy made and placed on chart, and original given to pt. Original Note: RN CM LEVELER CM to room to meet with patient for initial transition planning/care coordination assessment. RN CM introduced self and role at [facility]. Pt voices understanding and consents to assessment at this time. Pt sitting up in recliner chair, in no distress at this time. Pt is A/O at this time and answers all questions appropriately. Care providers, pharmacy, and demographics verified/updated at this time. PCP: Dr Boy William in [place], [place] Specialists: Dr Nina--shovel log loader operator in [place], [place] Preferred Pharmacy: [facility] in [place] [facility] Pres[facility] Benefit: Yes Financial: Denies having any financial concerns at this time. Living Will/HPOA: [facility] does not have LW or HCPOA . Interested in more information but [facility] does not want to talk with SW at this time to complete paperwork. Provided information on advanced directives and given Social Service rac card with number to call if chooses in the future to utilize [facility] social work for advanced directive completion. Educated patient that, if patient so chooses, can come back to [facility] and meet with a SW as an outpatient to complete health care advanced directives. Patient expresses understanding. LNOK: . Daughter that lives very close and son who lives in [place]. Living Arrangements: Lives in one story home w/laundry in the basement w/rails on stairs. Takes the stairs slowly d/t hx bilat knee replacements. States they are making plans to move the laundry to the main floor. No steps to enter home. States is independent with ADL's and home mgmt tasks. Transportation: Pt states drives self and states no transportation concerns at this time. will drive her home @ D/C DME: has the following DME: glucometer--states is works properly and she has all the needed supplies. Pt states no need for further DME at this time. HHC/SNF: No hx/ SNF. States has used HHC in the past after knee replacements and femur fx. Denies needs for SNF or HHC at discharge Pt wishes to return home and states has no concerns with going home at time of discharge. CM to follow for any discharge planning/needs. Pt voices no further concerns/needs at this time. Advised pt to ask for CM if any further questions/concerns/needs arise. Voices understanding. PLAN: Home w/spousal support and discharge plans in place. Mark SARGENTN RN CM
[2019-08-15] MEDS: hydrALAZINE 25 MG Tablet 75 MG PO ×2 (13:49→21:55)
[2019-08-15 16:50] LABS: Bedside Glucose 135 mg/dL (70-110)
[2019-08-15] MEDS: Pravastatin 20 MG Tablet PO (21:55)
[2019-08-15 22:06] LABS: Bedside Glucose 105 mg/dL (70-110)
[2019-08-16] VITALS (10 sets, daily range): BP systolic 114–176; BP diastolic 47–76; PULSE 74–84; RESP 16–18; TEMP 36.6–37.2; O2SAT 94–97
[2019-08-16] MEDS: hydrALAZINE 20 MG/ML Vial 10 MG IV (03:49)
[2019-08-16] MEDS: 0.9% NaCl Peripheral Flush Adult/Peds IV (03:53)
[2019-08-16] MEDS: Acetaminophen 325 MG Tablet 650 MG PO ×2 (04:53→13:10)
[2019-08-16] MEDS: hydrALAZINE 25 MG Tablet 75 MG PO ×2 (05:45→13:09)
[2019-08-16 06:45] LABS: Bedside Glucose 114 mg/dL (70-110)
[2019-08-16 08:53] LABS: Absolute Lymphocyte Count 2.36 X10^3/uL (0.83-4.51); Absolute Neutrophil Count 4.9 X10^3/uL (2.0-7.7); Basophil# 0.03 X10^3/uL; Basophil% 0.4 % (0-1); Eosinophil# 0.11 X10^3/uL; Eosinophils% 1.4 % (0-5); Hematocrit 39.8 % (37-47); Hemoglobin 13.6 g/dL (12.0-15.0); Lymphocyte # 2.36 X10^3/ul (4.0); Lymphocyte % 29.1 % (19-41); Mean Corp Hgb Conc 34.2 g/dL (32-36); Mean Corpuscular Hgb 30.5 pg (27.0-32.0); Mean Corpuscular Volume 89.2 fL (81-99); Mean Platelet Vol. 9.8 fl (6.2-12.0); Monocyte# 0.72 X10^3/uL; Monocyte% 8.9 % (0-10); NRBC Flagged by Analyzer 0 % (0-5); Neutrophil # 4.85 X10^3/uL (2.7-7.7); Neutrophil % 59.6 % (47-70); Platelet Count 248 K/mm3 (150-450); RBC Distribution Width CV 12.3 % (11.6-14.6); RBC Distribution Width SD 40.2 fl (35.1-43.9); Red Blood Count 4.46 M/mm3 (4.2-5.4); White Blood Count 8.1 K/mm3 (4.4-11.0)
[2019-08-16] MEDS: Labetalol 200 MG Tablet 400 MG PO (09:22)
[2019-08-16] MEDS: Pantoprazole Sodium 20 MG Tablet PO (09:22)
[2019-08-16] MEDS: amLODIPine 10 MG Tablet PO (09:22)
[2019-08-16] MEDS: glipiZIDE 10 MG Tablet PO (09:22)
[2019-08-16] MEDS: Lisinopril 40 MG Tablet PO (09:22)
[2019-08-16] MEDS: LINAGLIPTIN 5 MG TABLET PO (09:22)
[2019-08-16] MEDS: Mirabegron 50 MG TAB.ER.24H PO (09:22)
[2019-08-16] MEDS: Enoxaparin 40 MG/0.4 ML Syringe SC (09:23)
[2019-08-16 09:24] LABS: Anion Gap 10 (5-15); BUN 25 mg/dL (7-18); Calcium,Total 8.7 mg/dL (8.5-10.1); Chloride 98 mmol/L (98-107); Creatinine, Serum 0.81 mg/dL (0.55-1.02); EST Glomerular Filtration Rate 74 mL/min (>60); Est Glom Filt Rate - Afr Amer 90 mL/min (>60); Estimated Creatinine Clearance 53.42 ml/min; Glucose 103 mg/dL (74-106); Potassium 3.8 mmol/L (3.5-5.1); Sodium Level 133 mmol/L (136-145)
--- NOTE | 2019-08-16 11:13 | PCM.DC ---
- Discharge Diagnoses Current Active Problems: Current Active and Chronic Problems (Last Updated 08/14/19 @ 06:40 by Skip Hickman MD) Hypertensive urgency (Acute) Reason(s) for Visit for Discharge Instructions: Elevated blood pressure You will use the following diet at home:: Cardiac Your food should be the consistency of: Regular Your liquids should be the consistency of: Regular/Thin Discharge Activity: Return to Normal Activity Additional Instructions: Take note of changes to your medications. Keep yourself hydrated. Follow-up with your primary care doctor within 1-2 weeks. Some of your labs werepending at the time of discharge. Follow-up with your primary doctor for them. Allergies/Adverse Reactions: Allergies Iodinated Contrast Media [DYEE] Allergy (Verified 08/14/19 00:07) Unknown oxycodone [From Percocet] Allergy (Verified 08/14/19 00:07) Unknown Penicillins [PCN] Allergy (Verified 08/14/19 00:07) Swollen lymph glands Medications to take at Discharge Amlodipine [Norvasc] 10 mg PO DAILY 08/14/19 Labetalol [Trandate (Beta Dewayne)] 400 mg PO BID 08/14/19 Mirabegron [Myrbetriq] 50 mg PO DAILY 08/14/19 Omeprazole [Prilosec] 20 mg PO DAILY 08/14/19 Pravastatin [Pravachol] 20 mg PO QHS 08/14/19 Sitagliptin Phosphate [Januvia] 100 mg PO DAILY 08/14/19 glipiZIDE [Glucotrol] 10 mg PO BIDAC 08/14/19 Acetaminophen [Tylenol Tablet] 650 mg PO Q6H PRN PRN tablet 08/16/19 Lisinopril [Zestril] 40 mg PO DAILY 30 Days #30 tab 08/16/19 hydrALAZINE [Apresoline] 75 mg PO TID #90 tab 08/16/19 The following prescriptions were given: hydrALAZINE [Apresoline] 75 mg PO TID #90 tab Transmission Status: Pending to [facility]/pharmacy #[id number] Lisinopril [Zestril] 40 mg PO DAILY 30 Days #30 tab Transmission Status: Pending to [facility]/pharmacy #[id number] Primary Care Physician: [facility] Doctor,Out of [NON-STAFF] - Please follow up with your Primary Care Physician in: within 1-2 weeks Test Results: Test results from this visit will be discussed in further detail at your follow-up appointment, if applicable. Proposed Discharge Date: 08/16/19
--- NOTE | 2019-08-16 11:15 | PCM.DC.SUM ---
Discharge Date and Diagnosis Date of Admission: 08/14/19 Date of Discharge: 08/16/19 - Primary Discharge Diagnosis Active and Suspected Problems (Last Updated 08/14/19 @ 06:40 by Skip Hickman MD) Hypertensive urgency (Acute) Hyponatremia - Secondary Discharge Diagnosis Hypertension Hyperlipidemia Type 2 DM GERD Overactive bladder Hospital Course and Treatment Imaging Results: Clinical Impression(s) from Imaging Studies Brain CT 08/14/19 01:23 IMPRESSION: 1. No acute intracranial abnormality. 2. Mild to moderate bilateral periventricular and subcortical white matter chronic small vessel disease with age appropriate cerebral atrophy. Electronically Signed: Jose Duval MD at 4:20 EDT Tel , Service support , Chest X-Ray 08/14/19 03:33 IMPRESSION: No acute cardiopulmonary disease Electronically Signed: Jose Duval MD at 4:27 EDT Tel , Service support , Nephrology Operations: None Procedures: - Summary of Care Provided: The patient is a 73 year old F with PMHx of hypertension, hyperlipidemia, Type 2 DM who was sent to the ED from her PCP office with uncontrolled blood pressure. Patient is admitting systolic blood pressure was 220. She also complained of severe headache ongoing for 3 to 4 weeks. She received multiple blood pressure medications. Was also noted to be hypokalemic. Serum renin and dose Carone was ordered and were pending at time of discharge. Nephrology was consulted. Her sodium was transiently low; 128. Repeat sodium levels the next day was 133. She was managed on amlodipine, hydralazine, lisinopril. Blood pressure was almost normal at the time of discharge. She will follow-up with your primary care doctor in 2 weeks. Subjective: On the day of discharge, patient was seen and examined. Denied any new complaints. Her headache is improved. Improved with Tylenol. Objective: Physical Exam General: Alert, Oriented x3, Cooperative HEENT: Atraumatic, PERRLA, EOMI, Normocephalic Neck: Supple, No JVD, Negative Carotid Bruits Lungs: Clear to auscultation, Normal air movement Cardiovascular: Regular rate, Regular Rhythm, Normal S1, Normal S2, No murmurs Abdomen: Bowel Sounds Present, Soft, Non Tender, Non-Distended, Obese Extremities: No clubbing, No cyanosis, No edema, Capillary Refill Less than 3 Seconds Skin: No rashes, No breakdown Musculoskeletal: No Tenderness to Palpation of Joints or Extremities Neurological: Cranial nerves II-XII grossly intact, Neuro grossly intact Psych/Mental Status: Normal Affect, Appropriate - Physical Exam Vital Signs Temp Pulse Resp BP Pulse Ox 97.9 F 83 16 145/56 H 97 08/16/19 05:38 08/16/19 07:12 08/16/19 05:38 08/16/19 05:45 08/16/19 07:19 Oxygen Delivery Method Room Air Weight: 123 kg Body Mass Index (BMI) 46.5 Intake and Output for Last 24 Hours 08/14/19 08/15/19 08/16/19 23:59 23:59 23:59 Intake Total 940 / 940 120 / 120 120 / 120 Balance 940 / 940 120 / 120 120 / 120 Laboratory Tests Past 24 Hrs 08/16/19 08/16/19 08:24 08:24 WBC 8.1 RBC 4.46 Hgb 13.6 Hct 39.8 MCV 89.2 MCH 30.5 MCHC 34.2 RDW Std Deviation 40.2 RDW Coeff of Cathie 12.3 Plt Count 248 MPV 9.8 Immature Gran % (Auto) 0.600 Neut % (Auto) 59.6 Lymph % (Auto) 29.1 [place] % (Auto) 8.9 Eos % (Auto) 1.4 Baso % (Auto) 0.4 Absolute Neuts (auto) 4.9 Absolute Lymphs (auto) 2.36 Nucleated RBC % 0 Sodium 133 L Potassium 3.8 Chloride 98 Carbon Dioxide 25.0 Anion Gap 10 BUN 25 H Creatinine 0.81 Estim Creat Clear Calc 53.42 Est GFR (MDRD) Af Amer 90 Est GFR (MDRD) Non-Af 74 BUN/Creatinine Ratio 31.0 H Glucose 103 Calcium 8.7 POC Glucose 08/16/19 08/15/19 08/15/19 06:38 21:51 16:16 POC Glucose 114 H 105 135 H 08/15/19 11:33 POC Glucose 203 H Discharge Diet: Low fat/ Low Cholesterol, 2000 mg Sodium Diet Discharge Activity: Return to Normal Activity Home Medications: Medications to take at Discharge Amlodipine [Norvasc] 10 mg PO DAILY 08/14/19 Labetalol [Trandate (Beta Dewayne)] 400 mg PO BID 08/14/19 Mirabegron [Myrbetriq] 50 mg PO DAILY 08/14/19 Omeprazole [Prilosec] 20 mg PO DAILY 08/14/19 Pravastatin [Pravachol] 20 mg PO QHS 08/14/19 Sitagliptin Phosphate [Januvia] 100 mg PO DAILY 08/14/19 glipiZIDE [Glucotrol] 10 mg PO BIDAC 08/14/19 Acetaminophen [Tylenol Tablet] 650 mg PO Q6H PRN PRN tab 08/16/19 Lisinopril [Zestril] 40 mg PO DAILY 30 Days #30 tab 08/16/19 hydrALAZINE [Apresoline] 75 mg PO TID #90 tab 08/16/19 Following Prescrptions Were Given to Patient: hydrALAZINE [Apresoline] 75 mg PO TID #90 tab Transmission Status: Received by [facility]/pharmacy #[id number] Lisinopril [Zestril] 40 mg PO DAILY 30 Days #30 tab Transmission Status: Received by [facility]/pharmacy #[id number] Primary Care Physician: Alisha Doctor,Out of [NON-STAFF] - Please follow up with your Primary Care Physician in: within 1-2 weeks Disposition: Home Minutes spent on discharge:: 40 Patient Condition:: Stable Medical Necessity - Tobacco Use Smoking Status: Never smoker Tobacco Use: Non-smoker Meaningful Use Info Meaningful Use Diagnoses (Choose all that apply): None applicable Code Visit Inpatient E&M: 60637 Disch Hosp
[2019-08-16 13:20] LABS: Bedside Glucose 128 mg/dL (70-110)
--- NOTE | 2019-08-16 13:38 | PHA.DC.MC ---
Pharmacy Service has performed discharge medication reconciliation and counseling for this patient. The patient's discharge medication list was reviewed for discrepancies and discrepancies were resolved. The patient was counseled on the following discharge medications and changes in medications for homegoing were reviewed. 1. HYDRALAZINE 2. LISINOPRIL The Reason for Use, instructions for use, and potential side effects were reviewed for all new medications. The patient's questions regarding all of their medications were answered. The patient was able to verbally demonstrate an understanding of their discharge medications.
[2019-08-20 14:30] LABS: Aldosterone, Serum 6.2 ng/dL (0.0-30.0); Renin, Plasma < 0.167 ng/mL/hr (0.167-5.380)
== END 2019-08-16 11:04 | disposition home or self-care (01) | DRG 305 ==
LOC: ED 04:31 → PCU 05:50
PROVIDERS: Admitting Provider Hospitalist; Emergency Provider Emergency Medicine; Visit Provider Internal Medicine
DX: I16.0 Hypertensive urgency (principal); E87.6 Hypokalemia; E87.1 Hypo-osmolality and hyponatremia; E11.9 Type 2 diabetes mellitus without complications; E78.5 Hyperlipidemia, unspecified; N32.81 Overactive bladder; K21.9 Gastro-esophageal reflux disease without esophagitis; Z96.653 Presence of artificial knee joint, bilateral; E66.9 Obesity, unspecified; Z68.42 Body mass index [BMI] 45.0-49.9, adult; Z79.84 Long term (current) use of oral hypoglycemic drugs; Z79.899 Other long term (current) drug therapy
CPT/HCPCS: 36415; 70450; 71045; 80048; 82088; 82962; 84244; 84484; 85025; 93005; 93306; 93975; 99285; A4216